=== PATIENT | female | born 1960 | race Caucasian/White ===

== ENCOUNTER 2020-11-16 07:08 | Outpatient (CLI) | payer OTHER | END 2020-11-16 23:59 | disposition home or self-care (01) | LOC: ROC 07:08 | PROVIDERS: ATTEND Radiology Radiation Oncology | DX: D32.0 Benign neoplasm of cerebral meninges (principal) | CPT/HCPCS: 99214; G0463 ==

== ENCOUNTER 2020-12-07 11:13 | Outpatient (CLI) | payer OTHER ==
[2020-12-07] MEDS ORDERED: GADOTERATE 7.5 MMOL/15 ML VIAL ONE (11:30)
== END 2020-12-07 23:59 | disposition home or self-care (01) ==
LOC: CFH 11:13
PROVIDERS: ATTEND Radiology Radiation Oncology
DX: D32.0 Benign neoplasm of cerebral meninges (principal); I10 Essential (primary) hypertension
CPT/HCPCS: 70553; A9575

== ENCOUNTER → 2021-04-11 | Outpatient (CLI) | payer OTHER ==
[~2021-04-11] MED LIST: GADOTERATE 10 MMOL/20ML SYR ONE
== END | disposition home or self-care (01) ==
LOC: CFH 12:17
PROVIDERS: ATTEND Radiology Radiation Oncology
DX: D32.0 Benign neoplasm of cerebral meninges (principal); G93.89 Other specified disorders of brain; I10 Essential (primary) hypertension
CPT/HCPCS: 70553; A9575

== ENCOUNTER 2021-05-09 10:04 | Outpatient (CLI) | payer OTHER | END 2021-05-09 23:59 | disposition home or self-care (01) | LOC: ROC 10:04 | PROVIDERS: ATTEND Radiology Radiation Oncology | DX: Z08 Encounter for follow-up examination after completed treatment for malignant neoplasm (principal); D32.0 Benign neoplasm of cerebral meninges; I10 Essential (primary) hypertension | CPT/HCPCS: 99212; G0463 ==